=== PATIENT | male | born 1980 | race Two or more races ===

== ENCOUNTER 2017-05-19 11:15 | Outpatient (CLI) | payer BC ==
[~2017-05-19 11:15] MED LIST: TRAMADOL HCL50 MG ORAL
--- NOTE | 2017-05-19 13:43 | Diagnostic Imaging Report ---
Indication: Cough Technique: 2 views of the chest Comparison: none. Findings: Lungs and pleural spaces are clear. Heart size is normal. Bones are unremarkable.. Impression: No acute process
== END 2017-05-19 13:15 | disposition home or self-care (01) ==
LOC: RAD 11:15
DX: J22 Unspecified acute lower respiratory infection (principal)
CPT/HCPCS: 71020